=== PATIENT | female | born 2000 | race Two or more races ===

== ENCOUNTER 2025-07-24 12:34 | Outpatient (OUT) | payer BC, SELFPAY ==
--- OUTSIDE RECORDS SUMMARY | 2025-07-24 11:00 | XMS_ITS | Encounter Summary ---
Author Organization [facility] Address [address] [place] [address] Care Team Providers Care Document Photographer Name Role Phone Unavailable Primary Care Provider Unavailabl e Reason for Visit * Reason Comments Routine Visit Encounter Details Date Type Department Care Team (Late st Contact Info) Description 07/24/2025 11:00 AM EDT Routine [facility] [address] [facility] [place] [id number] Cb Rodrigues DO [address] [facility] [place] [address] First trimester ([facility]); 10 weeks gestation of ([facility]) Social History Tobacco Use Types Packs/Day Years Used Date Smoking Tobacco: Never Assessed Estimated Date of Delivery Comme nts Yes 02/19/2026 Based on Ultraso und Sex and Gender Information Value Date Recorded Sex Assigned at Not on file Legal Sex Female 7:27 PM EDT Gender Identity Not on file Sexual Orientation Not on file documented as of this encounter Last Filed Vital Signs Vital Sign Reading Time Taken Comments Blood Pressure 128/84 07/24/2025 11:14 AM EDT Pulse - - Temperature - - Respiratory Rate - - Oxygen Saturation - - Inhaled Oxygen Concentration - - Weight 115 kg (253 lb) 07/24/2025 11:14 AM EDT Height - - Body Mass Index 39.63 06/28/2025 11:30 AM EDT documented in this encounter Progress Notes * Shayla Arreaga NP - 07/24/2025 11:00 AM EDT Reason for Appointment: Patient ID: Josefina Eckert is a 25 y.o. female who presents for Routine Visit Patient presents today for Return OB appointment. MEDICATIONS Current Outpatient Medications Medication Instructions buPROPion SR (Wellbutrin SR) 150 MG 12 hr tablet TAKE 1 TABLET BY MOUTH EVERY MORNING WITH FOOD naltrexone (Depade) 50 MG tablet TAKE 1/2 (ONE-HALF) OF A TABLET BY MOUTH EVERY MORNING MV-Min-Fe Fum-FA-DHA ( 1 PO) Take by mouth ALLERGIES No Known Allergies PROBLEMS Active Ambulatory Problems Diagnosis Date Noted No Active Ambulatory Problems Resolved Ambulatory Problems Diagnosis Date Noted No Resolved Ambulatory Problems No Additional Past Medical History HISTORY PAST MEDICAL HISTORY SOCIAL HISTORY No past medical history on file. Social History Tobacco Use Smoking status: Not on file Smokeless tobacco: Not on file Substance Use Topics Alcohol use: Not on file Drug use: Not on file FAMILY HISTORY No family history on file. SURGICAL HISTORY History reviewed. No pertinent surgical history. REVIEW OF SYSTEMS Review of Systems: Review of Systems Constitutional: Negative. HENT: Negative. Eyes: Negative. Respiratory: Negative. Cardiovascular: Negative. Gastrointestinal: Negative. Genitourinary: Negative. Musculoskeletal: Negative. Skin: Negative. Neurological: Negative. All other systems reviewed and are negative. Hematological: Negative. Endocrine: Negative. Allergic/Immunologic: Negative. OBJECTIVE Objective: Physical Exam Constitutional: Appearance: Normal appearance. She is well-developed. Cardiovascular: Rate and Rhythm: Normal rate and regular rhythm. Pulmonary: Effort: Pulmonary effort is normal. Breath sounds: Normal breath sounds. Abdominal: General: Bowel sounds are normal. There is no distension. Palpations: Abdomen is soft. Tenderness: There is no abdominal tenderness. There is no guarding or rebound. Musculoskeletal: General: No swelling. Normal range of motion. Right lower leg: No edema. Left lower leg: No edema. Neurological: Mental Status: She is alert and oriented to person, place, and time. Skin: General: Skin is warm and dry. Psychiatric: Mood and Affect: Mood normal. Behavior: Behavior normal. Vitals and nursing note reviewed. Exam conducted with a online tutor present. Vitals: Estimated body mass index is 39.63 kg/m?? as calculated from the following: Height as of 06/28/25: 5' 7 . Weight as of this encounter: 253 lb. BP: 128/84 Patient's last menstrual period was 04/27/2025. ASSESSMENT & PLAN ICD-10-CM 1. First trimester ([facility]) Z34.91 POCT urinalysis dipstick manually resulted 2. 10 weeks gestation of ([facility]) Z3A.10 Return OB: Patient presents today for a routine obstetrics appointment. Patient is currently 10w0d . Patient states she is doing well but has complaints of being tired due to current . Patient has verbalizes frequent movement. labor precautions was discussed/given and patient was instructed to perform kick counts three times a day. Orders Placed This Encounter Procedures POCT urinalysis dipstick manually resulted Follow Up: Patient is to return to office in 4 week for routine OB appointment. Documented by Shayla Arreaga NP on behalf of: Cb Rodrigues DO documented in this encounter Plan of Treatment Upcoming Encounters Date Type Department Care Team (Late st Contact Info) Description 08/21/2025 4:00 PM EDT Routine [facility] [address] [facility] [address] Greer Bird PA [address] [facility] [address] documented as of this encounter Procedures Procedure Name Priority Date/Time Associated Diagnosis Comments POCT URINALYSIS DIPSTICK Routine 07/24/2025 11:25 AM EDT First trimester ([facility]) documented in this encounter Results * POCT urinalysis dipstick manually resulted (07/24/2025 11:25 AM EDT) Color, UA Yellow Clarity, UA Clear Glucose, UA Negative Negative - 2000(110) ++++ mg/dL Bilirubin, UA Negative Negative - 4(70) +++ mg/dL Ketones, UA Negative Negative - 160(16) ++++ mg/dL Spec Grav, UA 6.000 1 - 1.03 Blood, UA Negative Negative - 50 Dustin/mcL pH, UA 6.0 5 - 9 Protein, UA Negative Negative - 1999(20) ++++ mg/dL Urobilinogen, UA 1.0 0.2 - 12 mg/dL Leukocytes, UA Negative Negative - 500+++ Adriana/mcL Nitrite, UA Negative Negative - Positive Urine 07/24/2025 11:2 5 AM EDT Cb Rodrigues DO POINT OF CARE TEST ENTER/EDIT OR DERABLES Final Result documented in this encounter Visit Diagnoses Diagnosis First trimester ([facility]) state, incidental 10 weeks gestation of ([facility]) documented in this encounter
--- OUTSIDE RECORDS SUMMARY | 2025-07-24 12:46 | XMS_ITS | Encounter Summary ---
Author Organization [facility] Address [address] [place] [address] Care Team Providers Care Electric Locomotive Firer/Fireman Name Role Phone Unavailable Primary Care Provider Unavailabl e Encounter Details Date Type Department Care Team ([facility] Contact Info) Description 07/24/2025 Bamboo flowsheet [facility] [address] [place] [address] [place] [address] Cb Rodrigues DO [address] [facility] [address] [place], [facility] Social History Tobacco Use Types Packs/Day Years Used Date Smoking Tobacco: Never Assessed Estimated Date of Delivery Comme nts Yes 02/19/2026 Based on Ultraso und Sex and Gender Information Value Date Recorded Sex Assigned at Not on file Legal Sex Female 7:27 PM EDT Gender Identity Not on file Sexual Orientation Not on file documented as of this encounter Plan of Treatment Upcoming Encounters Date Type Department Care Team (Late Contact Info) Description 08/21/2025 4:00 PM EDT Routine [facility] [address] [place] [address] Greer Bird PA [address] [facility] [place] [address] documented as of this encounter Visit Diagnoses Not on filedocumented in this encounter
--- OUTSIDE RECORDS SUMMARY | 2025-07-24 12:46 | XMS_ITS | Encounter Summary ---
Author Organization [facility] Address [address] [place] [address] Care Team Providers Care Intranet Developer Name Role Phone Unavailable Primary Care Provider Unavailabl e Encounter Details Date Type Department Care Team (Late Contact Info) Description 06/28/2025 Abstract [facility] [address] [place] [address] [place] [address] Cb Rodrigues DO [address] [facility] [address] [place], [facility] Social History Tobacco Use Types Packs/Day [...] Info) Description 08/21/2025 4:00 PM EDT Routine [facility] [address] [facility] [place] [address] Greer Bird PA [address] [facility] [address] [place], [facility] documented as of this encounter Visit Diagnoses Not on filedocumented in this encounter
[2025-07-24 13:26] LABS: Hematocrit 38.9 % (36.0-48.0); Hemoglobin 13.8 g/dL (12.0-16.0); Immature Granulocytes Abs Auto 0.03 10^3/uL (0.00-0.03); Immature Granulocytes Pct Auto 0.3 % (0.0-0.5); Lymphocytes Absolute Auto 2.8 10^3/uL (1.2-3.8); Mean Corpuscular HGB Conc 35.5 g/dL (29.9-35.2); Mean Corpuscular Hemoglobin 31.6 pg (26.7-34.0); Mean Corpuscular Volume 89.0 fL (81.0-99.0); Platelet Count 278 10^3/uL (150-450); Red Blood Count 4.37 10^6/uL (4.20-5.40); White Blood Count 11.5 10^3/uL (4.0-11.0)
[2025-07-24 14:06] LABS: Cannabinoid Screen Urine NEGATIVE (NEGATIVE); Methamphetamines Screen Urine NEGATIVE (NEGATIVE); Tricyclic Antidepressant Urine NEGATIVE (NEGATIVE)
[2025-07-25 07:08] LABS: Rubella Antibodies, IgG 5.01 index (Immune >0.99)
[2025-07-25 13:08] LABS: Rapid Plasma Reagin, Quant Non Reactive titer (NonRea<1:1)
== END 2025-07-24 12:35 | disposition home or self-care (01) ==
LOC: LAB 12:44
PROVIDERS: PCP Obstetrics & Gynecology; Visit Provider Obstetrics & Gynecology
DX: Z34.01 Encounter for supervision of normal first pregnancy, first trimester (principal); N92.6 Irregular menstruation, unspecified
CPT/HCPCS: 36415; 80307; 83036; 85025; 86592; 86762; 86803; 86850; 86900; 86901; 87086; 87340; 87389

== ENCOUNTER 2025-09-10 09:55 | Outpatient (OUT) | payer BC, SELFPAY ==
--- OUTSIDE RECORDS SUMMARY | 2025-09-10 09:59 | XMS_ITS | Clinical Summary ---
Demographics Address [address] [place] [address] Home Phone Mobile Phone Preferred Language Irish Marital Status Single Anabaptist Affiliation Unknown Race White Ethnic Group Not or Lati no Author Organization [facility] Address [address], [address] [place] [address] Care Team Providers Care Lamination Assembler Name Role Phone Adelso Barbour MD Primary Care Provider [phone] Allergies No known active allergies Medications MedicationSigDispense QuantityRefillsLast FilledStart DateEnd DateStatus norgestimate-ethinyl estradiol (SPRINTEC 28) 0.25-35 MG-MCG per tablet Take 1 tablet by mouth dailyActive Active Problems No known active problems Social History Tobacco UseTypesPacks/DayYears UsedDateSmoking Tobacco: NeverAlcohol UseStandard Drinks/WeekCommentsNot Asked0 (1 standard drink = 0.6 oz pure alcohol) CommentsNoSex and Gender InformationValueDate RecordedSex Assigned at BirthNot on fileLegal MwsOyvxxf95/09/2016 9:32 AM EDTGender IdentityNot on fileSexual OrientationNot on file Last Filed Vital Signs Vital SignReadingTime TakenCommentsBlood Koimdujd401/7206 3:21 PM EDT Wwlzn9310 3:21 PM NMEXsyuqryysyt73.6 ??C (97.8 ??F)04/12/2019 3:21 PM EDTRespiratory Rate--Oxygen Uiwjhydggt75%04/12/2019 3:21 PM EDTInhaled Oxygen Concentration--Yxsrkc22.3 kg (188 lb)04/12/2019 3:21 PM GPITpwzse838.4 cm (5' 5.5 )07/15/2016 1:00 PM EDTBody Mass Index-- Plan of Treatment Not on file Care Teams Team MemberRelationshipSpecialtyStart DateEnd Date Back, MD Adelso [address] [place] [address] PCP - GeneralInternal Medicine03/08/16
--- OUTSIDE RECORDS SUMMARY | 2025-09-10 10:00 | XMS_ITS | Clinical Summary ---
Author Organization [facility] Address [address] [place] [address] Care Team Providers Care Beef Breaker Name Role Phone Unavailable Primary Care Provider Unavailabl e Allergies No known active allergies Medications MedicationSigDispense QuantityRefillsLast FilledStart DateEnd DateStatus MV-Min-Fe Fum-FA-DHA ( 1 PO) Take by mouthActive buPROPion SR (Wellbutrin SR) 150 MG 12 hr tablet TAKE 1 TABLET BY MOUTH EVERY MORNING WITH FOOD10/07/2024ctive naltrexone (Depade) 50 MG tablet TAKE 1/2 (ONE-HALF) OF A TABLET BY MOUTH EVERY ASMWXZZ1410/07/2024ctive Encounters DateTypeDepartmentCare AyyjEdlomvszfzy91/22/2025 4:00 PM EDTRoutine [facility] VELAZQUEZ [address] [place] [address] [place] [address] Greer Bird PA Diabetes mellitus screening (Primary Dx); Second trimester ([facility]); 14 weeks gestation of ([facility])08/21/2025amboo flowsheet [facility] VELAZ[facility] [address] [place] [address] Greer Bird PA 08/08/2025Telephone [facility] [place] [address] [place] [address] Shayla Arreaga NP 08/08/2025Telephone [facility] [address] [facility] [place] [address] Shayla Arreaga NP 07/24/2025 11:00 AM EDTRoutine [facility] Dan[facility] [place] [address] [address] Cb Rodrigues DO First trimester ([facility]); 10 weeks gestation of ([facility])5Clinisync Result Encounter NOMS External Department Unsolicited Cb Rodrigues DO 5Bamboo flowsheet [facility] [place] [address] [place] [address] Cb Rodrigues DO 06/28/2025 10:30 AM EDTInitial [facility] [address] [place] [address] [place]: 6w2d06/28/2025 10:00 AM EDTAncillary Procedure [facility] [place] [address] [place] [address] Missed menses; Positive urine test ([facility])5Abstract [facility] [place] [address] [address] Cb Rodrigues DO from Last 3 Months Social History Tobacco UseTypesPacks/DayYears UsedDateSmoking Tobacco: Never Assessed Estimated Date of IqitohlrRontxrepJop95/22/2026Based on UltrasoundSex and Gender InformationValueDate RecordedSex Assigned at BirthNot on fileLegal SexFemale 2023 7:27 PM EDTGender IdentityNot on fileSexual OrientationNot on file Last Filed Vital Signs Vital SignReadingTime TakenCommentsBlood Ivbgcyuf792/7808/21/2025 4:26 PM EDT Pulse--Temperature--Respiratory Rate--Oxygen Saturation--Inhaled Oxygen Concentration--Dzuoca858 kg (257 lb 12.8 oz)08/21/2025 4:26 PM IKSTukezb798.2 cm (5' 7 )06/28/2025 11:30 AM EDTBody Mass Index40.3808 11:30 AM EDT Plan of Treatment DateTypeDepartmentCare Team (Latest Contact Info)Hxtdvbvdprw38/24/2025 3:10 PM ESTRoutine [facility] [address] [facility] [place] [address] RaviCb becerra, [address] [facility] [place] [address] Health MaintenanceDue DateLast DoneCommentsCOVID-19 Vaccine ( season) , 08/27/2021Influenza Vaccine (#1)2025Pneumococcal Vaccine: Pediatrics (0 to 5 Years) and At-Risk Patients (6 to 64 Years)Aged Out No longer eligible based on patient's age to complete this topic Procedures Procedure NamePriorityDate/TimeAssociated DiagnosisCommentsPOCT URINALYSIS DAWALCRNHbjlrbs68/22/2025 4:41 PM EDT 14 weeks gestation of ([facility] HBSAG SNOCJTOybpbzp15/24/2025 1:15 PM EDT RAPID PLASMA REAGIN, UTPYUQvtluqs31/24/2025 1:15 PM EDT HCV ANTIBODY RFX TO QUANT DTLWaahxyl54/24/2025 1:15 PM EDT ALL RUBELLA IGG RSSehapdg06/24/2025 1:15 PM EDT HIV AB/P24 AG WITH BDTOLQXevenbm51/24/2025 1:15 PM EDT ALL TYPE AND LVGWDJVppeubd22/24/2025 1:15 PM EDT ALL CBC WITH AUTO GEBAQdsnzks63/24/2025 1:15 PM EDT MLR HEMOGLOBIN I2FXkwheko02/ 1:15 PM EDT BOX FZPBYtsqkgh63/24/2025 1:15 PM EDT TBH DRUG SCREEN RAPID (URINE)Zmltcdv5407/24/2025 12:59 PM EDT POCT URINALYSIS SBGUWISKStrsqon44/24/2025 11:25 AM EDT First trimester ([facility]) POCT URINALYSIS ZRFULBVWAgmrwbx86/29/2025 11:28 AM EDT Missed menses POCT , WDGPMBsuxpiv07/29/2025 11:28 AM EDT Missed menses US OB YJHAESKUMLCDLhnhqmy22/29/2025 10:33 AM EDT Missed menses Positive urine test ([facility]) from Last 3 Months Results * POCT urinalysis dipstick manually resulted (08/21/2025 4:41 PM EDT) Only the most recent of3 resultswithin the time period is included. ComponentValueRef RangeTest MethodAnalysis TimePerformed AtPathologist Signature Color, UAYellowClarity, UAClearGlucose, UANegativeNegative - 2000(110) ++++ mg/dLBilirubin, UANegativeNegative - 4(70) +++ mg/dLKetones, UANegativeNegative - 160(16) ++++ mg/dLSpec Grav, UA1.0051 - 1.03Blood, UANegativeNegative - 50 Dustin/mcLpH, UA6.05 - 9Protein, UANegativeNegative - 2000(20) ++++ mg/dL Urobilinogen, UA1.00.2 - 12 mg/dLLeukocytes, UANegativeNegative - 500+++ Adriana/mcL Nitrite, UANegativeNegative - PositiveSpecimen (Source)Anatomical Location / LateralityCollection Method / VolumeCollection TimeReceived HzbnDbvyx74/22/2025 4:41 PM EDT Narrative Authorizing ProviderResult TypeResult StatusAmy Marge [facility] OF CARE TEST ENTER/EDIT ORDERABLESFinal Result * BOX TEST (07/24/2025 1:15 PM EDT)ComponentValueRef RangeTest MethodAnalysis TimePerformed AtPathologist SignatureBOX TEST SENT XZKOXPBCWMLC5OGELWAMWMRO6 07/24/25TBHSpecimen (Source)Anatomical Location / LateralityCollection Method / VolumeCollection TimeReceived Time07/24/2025 1:15 PM EDT07/24/2025 1:20 PM EDT Narrative CLINISYNC - 07/24/2025 1:22 PM EDT Authorizing ProviderResult TypeResult StatusCorey Ravi DOLAB BLOOD ORDERABLES Final ResultPerforming OrganizationAddressty/[facility] CodePhone Number CLINISYNC TBH * HBSAG SCREEN (07/24/2025 1:15 PM EDT)ComponentValueRef RangeTest Method Analysis TimePerformed AtPathologist SignatureHBSAG SCREENNegativeNegativeTBH Comment: Performed at: ??CB - [facility] [address] ??[id number] Finishing Tunnel Operator: Avery Mahoney PhD, Phone: ??[phone] Specimen (Source)Anatomical Location / LateralityCollection Method / Volume Collection TimeReceived Time07/24/2025 1:15 PM EDT07/24/2025 1:19 PM EDT Narrative CLINISYPA - 07/25/2025 1:08 PM EDT Authorizing ProviderResult TypeResult StatusCorey Ravi DOLAB BLOOD ORDERABLES Final ResultPerforming OrganizationAddSpecial Care Hospitalty/State/[facility] CodePhone Number CLINISYNC [facility] * RAPID PLASMA REAGIN, QUANT (07/24/2025 1:15 PM EDT)ComponentValueRef RangeTest MethodAnalysis TimePerformed AtPathologist SignatureRAPID PLASMA REAGIN, QUANT Non ReactiveNonRea<1:1 titerTBHComment: Please Note: This test does not meet current guidelines for screening and diagnosis of syphilis. This test is intended for following treatment response in patients being treated for syphilis infection. To screen for syphilis infection, a reflex cascade that includes both RPR and a treponema-specific assay should be utilized, such as Treponema pallidum (Syphilis) Screening [place] (931858) or Rapid Plasma Reagin (RPR) Test With Reflex to Quantitative RPR and Confirmatory Treponema pallidum Antibodies (839550). Performed at: ??[address] ??[id number] Finishing Tunnel Operator: Avery Mahoney PhD, Phone: ??[phone] Specimen (Source)Anatomical Location / LateralityCollection Method / Volume Collection TimeReceived Time07/24/2025 1:15 PM EDT07/24/2025 1:19 PM EDT Narrative CLINISYPA - 07/25/2025 1:08 PM EDT Authorizing ProviderResult TypeResult StatusCorey Ravi DOLAB BLOOD ORDERABLES Final ResultPerforming OrganizationAddressty/State/ZIP CodePhone Number [facility] * HIV AB/P24 AG WITH REFLEX (07/24/2025 1:15 PM EDT)ComponentValueRef RangeTest MethodAnalysis TimePerformed AtPathologist SignatureHIV AB/P24 AG SCREENNon ReactiveNon ReactiveTBHComment: HIV-1/HIV-2 antibodies and HIV-1 p24 antigen were NOT detected. There is no laboratory evidence of HIV infection. HIV Negative Performed at: ??[address] ??[id number] Finishing Tunnel Operator: Avery Mahoney PhD, Phone: ??[phone] Specimen (Source)Anatomical Location / LateralityCollection Method / Volume Collection TimeReceived Time07/24/2025 1:15 PM EDT07/24/2025 1:19 PM EDT Narrative CLINISYPA - 07/25/2025 6:08 AM EDT Authorizing ProviderResult TypeResult StatusCorey Ravi DOLAB BLOOD ORDERABLES Final ResultPerforming OrganizationAddressty/State/ZIP CodePhone Number [facility] * HCV ANTIBODY RFX TO QUANT PCR (07/24/2025 1:15 PM EDT)ComponentValueRef Range Test MethodAnalysis TimePerformed AtPathologist SignatureHCV ABNon ReactiveNon ReactiveTBHINTERPRETATION:Comment.TBHComment: Not infected with HCV unless early or acute infection is suspected (which may be delayed in an immunocompromised individual), or other evidence exists to indicate HCV infection. Performed at: ?? - [facility] [address] ??[id number] Finishing Tunnel Operator: Avery Mahoney PhD, Phone: ??[phone] Specimen (Source)Anatomical Location / LateralityCollection Method / Volume Collection TimeReceived Time07/24/2025 1:15 PM EDT07/24/2025 1:19 PM EDT Narrative CLINISYNC - 07/25/2025 7:08 AM EDT Authorizing ProviderResult TypeResult StatusCorey Ravi DOLAB BLOOD ORDERABLES Final ResultPerforming OrganizationAddressCity/State/ZIP CodePhone Number [facility] * MLR HEMOGLOBIN A1C (07/24/2025 1:15 PM EDT)ComponentValueRef RangeTest Method Analysis TimePerformed AtPathologist SignatureGLYCOHEMOGLOBIN A1C5.74.5 - 6.2 %TBHComment: ADA RECOMMENDED LIMIT 4.0 - 6.0 ADA THERAPEUTIC TARGET < 7.0 ACTION SUGGESTED > 7.0 ESTIMATED AVERAGE ZATSLUS269ng/dLTBHSpecimen (Source)Anatomical Location / LateralityCollection Method / VolumeCollection TimeReceived Time07/24/2025 1:15 PM EDT07/24/2025 1:19 PM EDT Narrative CLINISYNC - 07/24/2025 1:37 PM EDT Authorizing ProviderResult TypeResult StatusCorey Ravi DOCLINISYNCFinal Result Performing OrganizationAddressCity/State/ZIP CodePhone Number [facility] * ALL TYPE AND SCREEN (07/24/2025 1:15 PM EDT)ComponentValueRef RangeTest Method Analysis TimePerformed AtPathologist SignatureBLOOD TYPEO PositiveTBHANTIBODY SCREENNEGATIVETBHSpecimen (Source)Anatomical Location / LateralityCollection Method / VolumeCollection TimeReceived Time07/24/2025 1:15 PM EDT07/24/2025 1:19 PM EDT Narrative CLINISYNC - 07/24/2025 2:09 PM EDT [facility] , ?? Authorizing ProviderResult TypeResult StatusCorey Ravi DOCLINISYNCFinal Result Performing OrganizationAddressCity/State/ZIP CodePhone Number [facility] * ALL RUBELLA IGG AB (07/24/2025 1:15 PM EDT)ComponentValueRef RangeTest Method Analysis TimePerformed AtPathologist SignatureRUBELLA ANTIBODIES, IGG5.01 Immune >0.99 indexTBHComment: Non-immune <0.90 ?Equivocal ??0.90 - 0.99 Immune >0.99 Performed at: ??CB - [facility] [address] ??[id number] Finishing Tunnel Operator: Avery Mahoney PhD, Phone: ??[phone] Specimen (Source)Anatomical Location / LateralityCollection Method / Volume Collection TimeReceived Time07/24/2025 1:15 PM EDT07/24/2025 1:19 PM EDT Narrative VENUSNC - 07/25/2025 7:08 AM EDT Authorizing ProviderResult TypeResult StatusCorey Ravi DOCLINISYNCFinal Result Performing OrganizationAddressCity/State/ZIP CodePhone Number [facility] * (ABNORMAL) ALL CBC WITH AUTO DIFF (07/24/2025 1:15 PM EDT)ComponentValueRef RangeTest MethodAnalysis TimePerformed AtPathologist SignatureTBH WBC11.5(H) 4.0 - 11.0 10 3/uLTBHTBH RBC4.374.20 - 5.40 10 6/uLTBHTBH HGB13.812.0 - 16.0 g/dLTBHTBH HCT38.936.0 - 48.0 %TBHTBH MCV89.081.0 - 99.0 fLTBHTBH MCH31.626.7 - 34.0 pgTBHTBH MCHC35.5(H)29.9 - 35.2 g/dLTBHTBH RDW12.211.0 - 15.0 %TBHTBH KPG582448 - 450 10 3/uLTBHTBH MPV9.59.5 - 13.5 fLTBHNEUTROPHILS PERCENT AUTO 71.043.0 - 75.0 %TBHLYMPHOCYTES PERCENT AUTO24.020.5 - 60.0 %TBHMONOCYTES PERCENT AUTO3.91.7 - 12.0 %TBHTBH EO %0.5(L)0.9 - 7.0 %TBHBASOPHILS PERCENT AUTO0.30.2 - 2.0 %TBHIMMATURE GRANULOCYTES PCT AUTO0.30.0 - 0.5 %TBH NEUTROPHILS ABSOLUTE AUTO8.2(H)1.4 - 6.5 10 3/uLTBHLYMPHOCYTES ABSOLUTE AUTO 2.81.2 - 3.8 10 3/uLTBHMONOCYTES ABSOLUTE AUTO0.50.3 - 0.8 10 3/uLTBHTBH EO # 0.10.0 - 0.7 10 3/uLTBHBASOPHILS ABSOLUTE AUTO0.00.0 - 0.1 10 3/uLTBHIMMATURE GRANULOCYTES ABS AUTO0.030.00 - 0.03 10 3/uLTBHSpecimen (Source)Anatomical Location / LateralityCollection Method / VolumeCollection TimeReceived Time 07/24/2025 1:15 PM EDT07/24/2025 1:19 PM EDT Narrative CLINISYNC - 07/24/2025 2:02 PM EDT Authorizing ProviderResult TypeResult StatusCorey Ravi DOCLINISYNCFinal Result Performing OrganizationAddressCity/State/ZIP CodePhone Number CLINISYNC [facility] * TBH DRUG SCREEN RAPID (URINE) (07/24/2025 12:59 PM EDT)ComponentValueRef Range Test MethodAnalysis TimePerformed AtPathologist SignatureCANNABINOID SCREEN URINENEGATIVENEGATIVETBHPHENCYCLIDINE SCREEN URINENEGATIVENEGATIVETBHCOCAINE SCREEN URINENEGATIVENEGATIVETBHMETHAMPHETAMINES SCREEN URINENEGATIVENEGATIVE TBHOPIATE SCREEN URINENEGATIVENEGATIVETBHAMPHETAMINE SCREEN URINENEGATIVE NEGATIVETBHBENZODIAZEPINES SCREEN URINENEGATIVENEGATIVETBHTRICYCLIC ANTIDEPRESSANT URINENEGATIVENEGATIVETBHMETHADONE SCREEN URINENEGATIVENEGATIVE TBHBARBITURATES SCREEN URINENEGATIVENEGATIVETBHOXYCODONE SCREEN URINENEGATIVE NEGATIVETBHBUPRENORPHINE SCREEN URINENEGATIVENEGATIVETBHComment: DRUG CLASS TEST SYSTEM CUT-OFF CONCENTRATIONS ARE FOLLOWS: AMP (Amphetamine): 500 ng/mL BAR (Barbiturates): 200 ng/mL BZO (Benzodiazepines): 150 ng/mL BUP (Buprenorphine): 10 ng/mL LILIANE (Cocaine): 150 ng/mL mAMP (Methamphetamine): 500 ng/mL MTD (Methadone): 200 ng/mL OPI (Opiates): 100 ng/mL OXY (Oxycodone): 100 ng/mL PCP (Phencyclidine): 25 ng/mL THC (Cannabinoids): 50 ng/mL TCA (Trycyclic Antidepressants): 300 ng/mL Specimen (Source)Anatomical Location / LateralityCollection Method / Volume Collection TimeReceived Time07/24/2025 12:59 PM EDT07/24/2025 2:06 PM EDT Narrative CLINISYNC - 07/24/2025 2:07 PM EDT Authorizing ProviderResult TypeResult StatusCorey Ravi DOCLINISYNCFinal Result Performing OrganizationAddressCity/State/ZIP CodePhone Number [facility] * (ABNORMAL) POCT , urine manually resulted (06/28/2025 11:28 AM EDT) ComponentValueRef RangeTest MethodAnalysis TimePerformed AtPathologist SignaturePreg Test, UrPositiveNegativeSpecimen (Source)Anatomical Location / LateralityCollection Method / VolumeCollection TimeReceived TimeUrine 06/28/2025 11:28 AM EDT Narrative Authorizing ProviderResult TypeResult StatusCorey Ravi DOPOINT OF CARE TEST ENTER/EDIT ORDERABLESFinal Result * US OB transvaginal (06/28/2025 10:33 AM EDT)Anatomical RegionLaterality ModalityBodyUltrasoundSpecimen (Source)Anatomical Location / Laterality Collection Method / VolumeCollection TimeReceived Time06/30/2025 1:00 PM EDT Impressions 07/02/2025 8:04 AM EDT Findings consistent with a live intrauterine gestation, current sonographic age of 6 weeks and 2 days resulting in an estimated date of delivery of February 19, 2026 TRANSCRIBED BY: ? ELECTRONICALLY SIGNED BY: Liu Beck MD Narrative 07/02/2025 8:04 AM EDT FINDINGS: A single intrauterine gestational sac is present. ??No subchorionic hemorrhage. ??A single pole is present. Normal heart rate at 112 beats per minute. ??Yolk sac also is seen. ?? Current sonographic age is 6 weeks and 2 days based on the crown-rump length measurement of 5 mm. ??Based onthis age, current estimated date of delivery is February 19, 2026. ??No pelvic fluid or adnexal mass present. ??Cervical length is 4 cm, closed Procedure Note Liu Beck MD - 07/02/2025 FINDINGS: A single intrauterine gestational sac is present. No subchorionichemorrhage. A single pole is present. Normal heart rate at112 beats per minute. Yolk sac also is seen. Current sonographic age is6 weeks and 2 days based on the crown-rump length measurement of 5 mm.Based on this age, current estimated date of delivery is February 19, 2026.No pelvic fluid or adnexal mass present. Cervical length is 4 cm,closed IMPRESSION: Findings consistent with a live intrauterine gestation, currentsonographic age of 6 weeks and 2 days resulting in an estimated date ofdelivery of February 19, 2026 TRANSCRIBED BY: ELECTRONICALLY SIGNED BY: Liu Beck MD Authorizing ProviderResult TypeResult StatusCorey Ravi YUMI OB US PROCEDURES Final Result from Last 3 Months Insurance
[2025-09-10 11:48] LABS: Glucose 1 Hour 111 mg/dL (<130)
== END 2025-09-10 09:56 | disposition home or self-care (01) ==
LOC: LAB 09:57
PROVIDERS: PCP Obstetrics & Gynecology; Visit Provider Nurse Practitioner Family
DX: Z13.1 Encounter for screening for diabetes mellitus (principal)
CPT/HCPCS: 36415; 82950

== ENCOUNTER 2025-09-23 20:52 | Outpatient (REF) | payer BC, MEDICAID, SELFPAY ==
--- OUTSIDE RECORDS SUMMARY | 2025-09-23 15:10 | XMS_ITS | Encounter Summary ---
Author Organization [facility] Address [address] [place] [address] Care Team Providers Care Rd Scientist Name Role Phone Unavailable Primary Care Provider Unavailabl e Reason for Visit * ReasonCommentsRoutine Visit Encounter Details DateTypeDepartmentCare Team (Latest Contact Info)Qbxhhrninbx37/24/2025 3:10 PM ESTRoutine [facility] [address] [facility] [place] [address] Cb Rodrigues, [address] [facility] [address] [place], [place] [phone] Second trimester ([facility]); 18 weeks gestation of ([facility]); Screening, , for anatomic survey ([facility]) Social History Tobacco UseTypesPacks/DayYears UsedDateSmoking Tobacco: Never Assessed Estimated Date of ZjvcbkesIcvinfleUir65/22/2026ased on UltrasoundSex and Gender InformationValueDate RecordedSex Assigned at BirthNot on fileLegal SexFemale 2023 7:27 PM EDTGender IdentityNot on fileSexual OrientationNot on file documented as of this encounter Last Filed Vital Signs Vital SignReadingTime TakenCommentsBlood Ngcfhhes317/ 3:59 PM EST Pulse--Temperature--Respiratory Rate--Oxygen Saturation--Inhaled Oxygen Concentration--Gfjhan426 kg (268 lb)09/23/2025 3:59 PM ESTHeight--Body Mass Index41.9708 11:30 AM EDTdocumented in this encounter Plan of Treatment DateTypeDepartmentCare Team (Latest Contact Info)Vtpjissrccj49/22/2025 2:30 PM ESTAncillary Procedure [facility] Dan[facility]za V[facility]AZQUE[facility] [address] [facility] [place] [address] 10/21/2025 3:50 PM ESTRoutine [facility] Danitza VELAZQUEZ [address] [facility] [place] [address] Greer Bird PA [address] [facility] [address] [place], [place] [phone] NameTypePriorityAssociated DiagnosesOrder ScheduleSURESWAB(R) ADVANCED VAGINITIS PLUS, TMAPathology and CytologyRoutine Second trimester ([facility]) Ordered: 09/23/2025HLAMYDIA TRACHOMATIS (GENITO/STI)LabRoutine Second trimester ([facility]) Ordered: 09/23/2025Neisseria gonorrhea DNA probe, directLabRoutine Second trimester ([facility]) Ordered: 09/23/2025US OB 14+ weeks anatomy scanImagingRoutine Screening, , for anatomic survey ([facility]) Expected: 09/23/2025, Expires: 12/24/2025lpha fetoprotein, maternalLabRoutine Second trimester ([facility]) Expected: 09/23/2025 (Approximate), Expires: 11/23/2025Pap SmearPathology and CytologyRoutine Second trimester ([facility]) Ordered: 09/23/2025documented as of this encounter Procedures Procedure NamePriorityDate/TimeAssociated DiagnosisCommentsPOCT URINALYSIS DYLEFQUHLekehpy42/24/2025 3:59 PM EST 18 weeks gestation of ([facility]) documented in this encounter Results * POCT urinalysis dipstick manually resulted (09/23/2025 3:59 PM EST)Component ValueRef RangeTest MethodAnalysis TimePerformed AtPathologist SignatureColor, UAYellowClarity, UAClearGlucose, UANegativeNegative - 2000(110) ++++ mg/dL Bilirubin, UANegativeNegative - 4(70) +++ mg/dLKetones, UANegativeNegative - 160(16) ++++ mg/dLSpec Grav, UA1.0101 - 1.03Blood, UANegativeNegative - 50 Dustin/mcLpH, UA5.55 - 9Protein, UANegativeNegative - 2000(20) ++++ mg/dL Urobilinogen, UA1.00.2 - 12 mg/dLLeukocytes, UANegativeNegative - 500+++ Adriana/mcLNitrite, UANegativeNegative - PositiveSpecimen (Source)Anatomical Location / LateralityCollection Method / VolumeCollection TimeReceived Time Urine09/23/2025 3:59 PM EST Narrative Authorizing ProviderResult TypeResult StatusCorey Ravi DOPOINT OF CARE TEST ENTER/EDIT ORDERABLESFinal Result documented in this encounter Visit Diagnoses Diagnosis Second trimester ([facility]) state, incidental 18 weeks gestation of ([facility]) Screening, , for anatomic survey ([facility]) Encounter for anatomic survey documented in this encounter
--- OUTSIDE RECORDS SUMMARY | 2025-09-23 20:57 | XMS_ITS | Encounter Summary ---
Author Organization [facility] Address [address] [facility] [place] [address] Care Team Providers Care Line Service Person Name Role Phone Unavailable Primary Care Provider Unavailabl e Encounter Details DateTypeDepartmentCare Team (Latest Contact Info)Opydmdcxgjo23/11/2025linisync Result Encounter [facility] External Department Unsolicited Shayla Arreaga, MARIANO [address] [facility] [place] [address] Social History Tobacco UseTypesPacks/DayYears UsedDateSmoking Tobacco: Never Assessed Estimated Date of VnpminucBvkpbehlMbu31/22/2026Based on UltrasoundSex and Gender InformationValueDate RecordedSex Assigned at BirthNot on fileLegal SexFemale 2023 7:27 PM EDTGender IdentityNot on fileSexual OrientationNot on file documented as of this encounter Plan of Treatment DateTypeDepartmentCare Team (Latest Contact Info)Cumfbjzrjen58/22/2025 2:30 PM ESTAncillary Procedure NATALY VELAZQUEZ [address] [place] [address] [place] [address] 10/21/2025 3:50 PM ESTRoutine NATALY VELAZQUEZ [address] [place] [address] [place] [address] Greer Bird PA [address] [place] [address] documented as of this encounter Procedures Procedure NamePriorityDate/TimeAssociated DiagnosisCommentsGLUCOSE 1 HOURRoutine 09/10/2025 11:01 AM EST documented in this encounter Results * GLUCOSE 1 HOUR (09/10/2025 11:01 AM EST)ComponentValueRef RangeTest Method Analysis TimePerformed AtPathologist SignatureGLUCOSE 1 PWJT149<130 mg/dLTBH Specimen (Source)Anatomical Location / LateralityCollection Method / Volume Collection TimeReceived Time09/10/2025 11:01 AM EST09/10/2025 11:02 AM EST Narrative CLINISYNC - 09/10/2025 11:53 AM EST Authorizing ProviderResult TypeResult StatusShayla Arreaga NPLAB BLOOD ORDERABLESFinal ResultPerforming OrganizationAddressCity/State/ZIP CodePhone Number CLINISYNC TB documented in this encounter Visit Diagnoses Not on filedocumented in this encounter
--- OUTSIDE RECORDS SUMMARY | 2025-09-23 20:57 | XMS_ITS | Clinical Summary ---
Demographics Address [address] [place] [address] Home Phone Mobile Phone Preferred Language Nepali Marital Status Single Mu-Ism Affiliation Unknown Race White Ethnic Group Not or Lati no Author Organization [facility] Address [address], [address] [place] [address] Care Team Providers Care Computer Equipment Repairer Name Role Phone Adelso Barbour MD Primary Care Provider [phone] Allergies No known active allergies Medications MedicationSigDispense QuantityRefillsLast FilledStart DateEnd DateStatus norgestimate-ethinyl estradiol (SPRINTEC 28) 0.25-35 MG-MCG per tablet Take 1 tablet by mouth dailyActive Active Problems No known active problems Social History Tobacco UseTypesPacks/DayYears UsedDateSmoking Tobacco: NeverAlcohol UseStandard Drinks/WeekCommentsNot Asked0 (1 standard drink = 0.6 oz pure alcohol) CommentsNoSex and Gender InformationValueDate RecordedSex Assigned at BirthNot on fileLegal OurFfhohn13/09/2016 9:32 AM EDTGender IdentityNot on fileSexual OrientationNot on file Last Filed Vital Signs Vital SignReadingTime TakenCommentsBlood Poyayewr818/7206 3:21 PM EDT Hejdc6623 3:21 PM BXVOtzofxsoafi87.6 ??C (97.8 ??F)04/12/2019 3:21 PM EDTRespiratory Rate--Oxygen Qkqhjdfvan14%04/12/2019 3:21 PM EDTInhaled Oxygen Concentration--Dawbiz45.3 kg (188 lb)04/12/2019 3:21 PM TGLVbntli079.4 cm (5' 5.5 )07/15/2016 1:00 PM EDTBody Mass Index-- Plan of Treatment Not on file Care Teams Team MemberRelationshipSpecialtyStart DateEnd Date Back, MD Adelso [address] [place] [address] PCP - GeneralInternal Medicine03/08/16
--- OUTSIDE RECORDS SUMMARY | 2025-09-23 20:57 | XMS_ITS | Clinical Summary ---
Author Organization [facility] Address [address] [place] [address] Care Team Providers Care Home Hospice Aide Name Role Phone Unavailable Primary Care Provider Unavailabl e Allergies No known active allergies Medications MedicationSigDispense QuantityRefillsLast FilledStart DateEnd DateStatus MV-Min-Fe Fum-FA-DHA ( 1 PO) Take by mouthActive buPROPion SR (Wellbutrin SR) 150 MG 12 hr tablet TAKE 1 TABLET BY MOUTH EVERY MORNING WITH FOOD10/07/2024ctive naltrexone (Depade) 50 MG tablet TAKE 1/2 (ONE-HALF) OF A TABLET BY MOUTH EVERY SBNFLJY3610/07/2024ctive Encounters DateTypeDepartmentCare AfleRtiyjwtvyqb39/24/2025 3:10 PM [place] [address] Cb Rodrigues DO Second trimester ([facility]); 18 weeks gestation of ([facility]); Screening, , for anatomic survey ([facility])5Bamboo [place] [address] Cb Rodrigues DO 5Clinisync Result Encounter [facility] External Department Unsolicited Shayla Arreaga NP 08/21/2025 4:00 PM [place]TRout[place] [address] Greer Bird PA Diabetes mellitus screening (Primary Dx); Second trimester ([facility]); 14 weeks gestation of ([facility])5Bamboo flowsheet [facility] [address] [facility] [address] Greer Bird PA 08/08/2025Telephone [facility] [address] [facility] [address] Shayla Arreaga NP 08/08/2025Telephone [facility] [address] [facility] [address] Shayla Arreaga NP 07/24/2025 11:00 AM EDTRoutine [facility] [address] [facility] [address] Cb Rodrigues DO First trimester ([facility]); 10 weeks gestation of ([facility])5Clinisync Result Encounter [facility]OMS External Department Unsolicited Cb Rodrigues DO 5Bamboo flowsheet [facility] [address] [facility] [address] Cb Rodrigues DO 06/28/2025 10:30 AM EDTInitial [facility] [address] [place] [address] [place]: 6w2d06/28/2025 10:00 AM EDTAncillary Procedure [facility] [address] [facility] [address] Missed menses; Positive urine test ([facility])5Abstract [facility] [address] [place] [address] Cb Rodrigues DO from Last 3 Months Social History Tobacco UseTypesPacks/DayYears UsedDateSmoking Tobacco: Never Assessed Estimated Date of XnhvhultMltueujtNax08/22/2026ased on UltrasoundSex and Gender InformationValueDate RecordedSex Assigned at BirthNot on fileLegal SexFemale 2023 7:27 PM EDTGender IdentityNot on fileSexual OrientationNot on file Last Filed Vital Signs Vital SignReadingTime TakenCommentsBlood Cxtjciuh434/6809/23/2025 3:59 PM EST Pulse--Temperature--Respiratory Rate--Oxygen Saturation--Inhaled Oxygen Concentration--Rqmoaa157 kg (268 lb)09/23/2025 3:59 PM EZSFkortd398.2 cm (5' 7 ) 06/28/2025 11:30 AM EDTBody Mass Index41.9706/28/2025 11:30 AM EDT Plan of Treatment DateTypeDepartmentCare Team (Latest Contact Info)Aiggxowkero41/22/2025 2:30 PM ESTAncillary Procedure [facility] [address] [place] [address] [place] [address] 10/21/2025 3:50 PM ESTRoutine [facility] [address] [facility] [address] Greer Bird PA [address] [place] [address] Health MaintenanceDue DateLast DoneCommentsCOVID-19 Vaccine ( season) , 08/27/2021Influenza Vaccine (#1)2025Pneumococcal Vaccine: Pediatrics (0 to 5 Years) and At-Risk Patients (6 to 64 Years)Aged Out No longer eligible based on patient's age to complete this topic Procedures Procedure NamePriorityDate/TimeAssociated DiagnosisCommentsPOCT URINALYSIS WELRNEZXVfjuosf76/24/2025 3:59 PM EST 18 weeks gestation of ([facility]) GLUCOSE 1 IZQEZkpsdpb61/11/2025 11:01 AM EST POCT URINALYSIS LROJOINIGsyxicr19/22/2025 4:41 PM EDT 14 weeks gestation of ([facility]) HBSAG EYBVFGWeuhdpl60/24/2025 1:15 PM EDT RAPID PLASMA REAGIN, TKOTBDajrksj19/24/2025 1:15 PM EDT HCV ANTIBODY RFX TO QUANT WHYUokivxs85/24/2025 1:15 PM EDT ALL RUBELLA IGG BSNaysiej45/24/2025 1:15 PM EDT HIV AB/P24 AG WITH FOFOHZGyuxwun23/24/2025 1:15 PM EDT ALL TYPE AND FNUSZKJufzzcx85/24/2025 1:15 PM EDT ALL CBC WITH AUTO RIYEPgxgoiz32/24/2025 1:15 PM EDT MLR HEMOGLOBIN G0GHmqhnor34/24/2025 1:15 PM EDT BOX XBLPXlmrvgu49/24/2025 1:15 PM EDT TBH DRUG SCREEN RAPID (URINE)Uufloyf2607/24/2025 12:59 PM EDT POCT URINALYSIS MJTWAHJFEuejpcd17/24/2025 11:25 AM EDT First trimester ([facility]) POCT URINALYSIS LAHIECQVQjocnpf70/29/2025 11:28 AM EDT Missed menses POCT , HCQEMAjjntxa05/29/2025 11:28 AM EDT Missed menses US OB SOWVGBUZWVJGOokmetz45/29/2025 10:33 AM EDT Missed menses Positive urine test ([facility]) from Last 3 Months Results * POCT urinalysis dipstick manually resulted (09/23/2025 3:59 PM EST) Only the most recent of4 resultswithin the time period is included. ComponentValueRef [...] Location / LateralityCollection Method / VolumeCollection TimeReceived RfohLnsof17/24/2025 3:59 PM EST Narrative Authorizing ProviderResult TypeResult StatusCorebrenda Rodrigues DOPOINT OF CARE TEST ENTER/EDIT ORDERABLESFinal Result * GLUCOSE 1 HOUR (09/10/2025 11:01 AM EST)ComponentValueRef RangeTest Method Analysis TimePerformed AtPathologist SignatureGLUCOSE 1 TLDC641<130 mg/dLTBH Specimen (Source)Anatomical Location / LateralityCollection Method / Volume Collection TimeReceived Time09/10/2025 11:01 AM EST09/10/2025 11:02 AM EST Narrative [facility] - 09/10/2025 11:53 AM EST Authorizing ProviderResult TypeResult StatusShayla Arreaga NPLAB BLOOD ORDERABLESFinal ResultPerforming OrganizationAddressCity/State/ZIP CodePhone Number [facility] H * BOX TEST (07/24/2025 1:15 PM EDT)ComponentValueRef RangeTest MethodAnalysis TimePerformed AtPathologist SignatureBOX TEST SENT VZPCDUNOIEFX6PFOXUSSGFJN4 07/24/25TBHSpecimen (Source)Anatomical Location / LateralityCollection Method / VolumeCollection TimeReceived Time07/24/2025 1:15 PM EDT07/24/2025 1:20 PM EDT Narrative [facility] - 07/24/2025 1:22 PM EDT Authorizing ProviderResult TypeResult StatusCorey Ravi DOLAB BLOOD ORDERABLES Final ResultPerforming OrganizationAddressty/State/ZIP CodePhone Number [facility] * HBSAG SCREEN (07/24/2025 1:15 PM EDT)ComponentValueRef RangeTest Method Analysis TimePerformed AtPathologist SignatureHBSAG SCREENNegativeNegativeTBH Comment: Performed at: ??[facility] [address] ??[id number] Cream Dipper: Avery Mahoney PhD, Phone: ??[phone] Specimen (Source)Anatomical Location / LateralityCollection Method / Volume Collection TimeReceived Time07/24/2025 1:15 PM EDT07/24/2025 1:19 PM EDT Narrative [facility] - 07/25/2025 1:08 PM EDT Authorizing ProviderResult TypeResult StatusCorey Ravi DOLAB BLOOD ORDERABLES Final ResultPerforming OrganizationAddressCity/State/ZIP CodePhone Number [facility] * RAPID PLASMA REAGIN, QUANT (07/24/2025 1:15 [...] utilized, such as Treponema pallidum (Syphilis) Screening [place] ([id number]) or Rapid Plasma Reagin (RPR) Test With Reflex to Quantitative RPR and Confirmatory Treponema pallidum Antibodies ([id number]). Performed at: ??[facility] ??[id number] Cream Dipper: Avery Mahoney PhD, Phone: ??[phone] Specimen (Source)Anatomical Location / LateralityCollection Method / Volume Collection TimeReceived Time07/24/2025 1:15 PM EDT07/24/2025 1:19 PM EDT Narrative [facility] - 07/25/2025 1:08 PM EDT Authorizing ProviderResult TypeResult StatusCorey Ravi DOLAB BLOOD ORDERABLES Final ResultPerforming OrganizationAddRoxbury Treatment Centerty/State/ZIP CodePhone Number [facility] * HIV AB/P24 AG WITH REFLEX (07/24/2025 1:15 PM EDT)ComponentValueRef RangeTest MethodAnalysis TimePerformed AtPathologist SignatureHIV AB/P24 AG SCREENNon ReactiveNon ReactiveTBHComment: HIV-1/HIV-2 antibodies and HIV-1 p24 antigen were NOT detected. There is no laboratory evidence of HIV infection. HIV Negative Performed at: ??[facility] [address] ??[id number] Cream Dipper: Avery Mahoney PhD, Phone: ??[phone] Specimen (Source)Anatomical Location / LateralityCollection Method / Volume Collection TimeReceived Time07/24/2025 1:15 PM EDT07/24/2025 1:19 PM EDT Narrative [facility] - 07/25/2025 6:08 AM EDT Authorizing ProviderResult TypeResult StatusCorey Ravi DOLAB BLOOD ORDERABLES Final ResultPerforming OrganizationAddressty/State/[facility] CodePhone Number [facility] * HCV ANTIBODY RFX TO QUANT PCR (07/24/2025 1:15 PM EDT)ComponentValueRef Range Test MethodAnalysis TimePerformed AtPathologist SignatureHCV ABNon ReactiveNon ReactiveTBHINTERPRETATION:Comment.TBHComment: Not infected with HCV unless early or acute infection is suspected (which may be delayed in an immunocompromised individual), or other evidence exists to indicate HCV infection. Performed at: ??[facility] ??[id number] Cream Dipper: Avery Mahoney PhD, Phone: ??[phone] Specimen (Source)Anatomical Location / LateralityCollection Method / Volume Collection TimeReceived Time07/24/2025 1:15 PM EDT07/24/2025 1:19 PM EDT Narrative [facility] - 07/25/2025 7:08 AM EDT Authorizing ProviderResult TypeResult StatusCorebrenda CASTELAN BLOOD ORDERABLES Final ResultPerforming OrganizationAddressCity/State/ZIP CodePhone Number [facility] * MLR HEMOGLOBIN A1C (07/24/2025 1:15 PM EDT)ComponentValueRef RangeTest Method Analysis TimePerformed AtPathologist SignatureGLYCOHEMOGLOBIN A1C5.74.5 - 6.2 %TBHComment: ADA RECOMMENDED LIMIT 4.0 - 6.0 ADA THERAPEUTIC TARGET < 7.0 ACTION SUGGESTED > 7.0 ESTIMATED AVERAGE FDKOVEA030dk/dLTBHSpecimen (Source)Anatomical Location / LateralityCollection Method / VolumeCollection TimeReceived Time07/24/2025 1:15 PM EDT07/24/2025 1:19 PM EDT Narrative [facility] - 07/24/2025 1:37 PM EDT Authorizing ProviderResult TypeResult StatusCorey Ravi DOCLINISYNCFinal Result Performing OrganizationAddRoxbury Treatment Centerty/State/ZIP CodePhone Number [facility] * ALL TYPE AND SCREEN (07/24/2025 1:15 PM EDT)ComponentValueRef RangeTest Method Analysis TimePerformed AtPathologist SignatureBLOOD TYPEO PositiveTBHANTIBODY SCREENNEGATIVETBHSpecimen (Source)Anatomical Location / LateralityCollection Method / VolumeCollection TimeReceived Time07/24/2025 1:15 PM EDT07/24/2025 1:19 PM EDT Narrative [facility] - 07/24/2025 2:09 PM EDT [facility] , ?? Authorizing ProviderResult TypeResult StatusCorey Ravi DOCLINISYNCFinal Result Performing OrganizationAddPa[facility]/State/ZIP CodePhone Number [facility] * ALL RUBELLA IGG AB (07/24/2025 1:15 PM EDT)ComponentValueRef RangeTest Method Analysis TimePerformed AtPathologist SignatureRUBELLA ANTIBODIES, IGG5.01 Immune >0.99 indexTBHComment: Non-immune <0.90 ?Equivocal ??0.90 - 0.99 Immune >0.99 Performed at: ??[facility] [place] [id number] [place], [place] ??[id number] Cream Dipper: Avery Mahoney PhD, Phone: ??[phone] Specimen (Source)Anatomical Location / LateralityCollection Method / Volume Collection TimeReceived Time07/24/2025 1:15 PM EDT07/24/2025 1:19 PM EDT Narrative [facility] - 07/25/2025 7:08 AM EDT Authorizing ProviderResult TypeResult StatusCorey Ravi DOCLINISYNCFinal Result Performing OrganizationAddressCity/State/ZIP CodePhone Number [facility]ISYCOUNT[facility] * (ABNORMAL) ALL CBC WITH AUTO DIFF (07/24/2025 1:15 PM EDT)ComponentValueRef RangeTest MethodAnalysis TimePerformed AtPathologist SignatureTBH WBC11.5(H) 4.0 - 11.0 10 3/uLTBHTBH RBC4.374.20 - 5.40 10 6/uLTBHTBH HGB13.812.0 - 16.0 g/dLTBHTBH HCT38.936.0 - 48.0 %TBHTBH MCV89.081.0 - 99.0 fLTBHTBH MCH31.626.7 - 34.0 pgTBHTBH MCHC35.5(H)29.9 - 35.2 g/dLTBHTBH RDW12.211.0 - 15.0 %TBHTBH CNV247207 - 450 10 3/uLTBHTBH MPV9.59.5 - 13.5 [...] Ravi DOCLINISYNCFinal Result Performing OrganizationAddressCity/State/ZIP CodePhone Number [facility] * TB DRUG SCREEN RAPID (URINE) (07/24/2025 12:59 PM [...] 12:59 PM EDT07/24/2025 2:06 PM EDT Narrative [facility] - 07/24/2025 2:07 PM EDT Authorizing ProviderResult TypeResult StatusCorey Ravi DOCLINISYNCFinal Result Performing OrganizationAddressCity/State/ZIP CodePhone Number [facility] * (ABNORMAL) POCT , urine manually resulted [...] Beck MD Authorizing ProviderResult TypeResult StatusCorey Ravi EASON OB US PROCEDURES Final Result from Last 3 Months Insurance
--- OUTSIDE RECORDS SUMMARY | 2025-09-23 20:57 | XMS_ITS | Encounter Summary ---
Author Organization [facility] Address [address] [facility] [place] [address] Care Team Providers Care Oil Distributor Name Role Phone Unavailable Primary Care Provider Unavailabl e Encounter Details DateTypeDepartmentCare Team (Latest Contact Info)Ilnfaellroq46/24/2025amboo flowsheet [facility] [address] [place] [address] Cb Rodrigues DO [address] [facility] [address] Jeremy [place], [facility]11 Social History Tobacco UseTypesPacks/DayYears UsedDateSmoking Tobacco: Never Assessed Estimated Date of XjbogzmyHaojbyzuOrg21/22/2026Based on UltrasoundSex and Gender InformationValueDate RecordedSex Assigned at BirthNot on fileLegal SexFemale 2023 7:27 PM EDTGender IdentityNot on fileSexual OrientationNot on file documented as of this encounter Plan of Treatment DateTypeDepartmentCare Team (Latest Contact Info)Hssxydbtixa57/22/2025 2:30 PM ESTAncillary Procedure NATALY [facility] [address] [place] [address] [place] [address] 10/21/2025 3:50 PM ESTRoutine NATALY [facility] [address] [place] [address] [place] [address] Greer Bird PA [address] [facility] [place], [facility]11 documented as of this encounter Visit Diagnoses Not on filedocumented in this encounter
[2025-09-27 08:08] LABS: Age Gdln ACOG Testing Note (.); IGP, rfx Aptima HPV ASCU Note (.)
== END 2025-09-23 20:53 | disposition home or self-care (01) ==
LOC: LAB 20:52
PROVIDERS: PCP Obstetrics & Gynecology; Visit Provider Obstetrics & Gynecology
DX: Z01.419 Encounter for gynecological examination (general) (routine) without abnormal findings (principal)
CPT/HCPCS: 88175